=== PATIENT | male | born 1995 | race Hispanic/Latino ===

== ENCOUNTER 2024-03-29 20:52 | Emergency (ER) | payer SELFPAY ==
[2024-03-29 21:00] VITALS: BP 136/95; PULSE 78; RESP 16; TEMP 36.8; O2SAT 96
[2024-03-29 21:06] VITALS: O2SAT 96
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
[2024-03-29] MEDS: HYDROcodone/acetaminophen (*CRX) 5-325 MG TABLET 1 TAB PO (21:19)
== END 2024-03-29 21:57 | disposition home or self-care (01) ==
PROVIDERS: Emergency Provider Physician Assistant
DX: T21.22XA Burn of second degree of abdominal wall, initial encounter (principal); T31.0 Burns involving less than 10% of body surface; X10.2XXA Contact with fats and cooking oils, initial encounter; Y93.G3 Activity, cooking and baking
CPT/HCPCS: 16020; 99283; A9270